=== PATIENT | male | born 1975 | race African-American/Black ===

== ENCOUNTER 2020-06-12 07:39 | Day surgery (SDC) | payer OTHER ==
[2020-06-12] MEDS ORDERED: LIDOCAINE 1% 10 ML VIAL INJ ONE (07:40)
[2020-06-12] MEDS ORDERED: PROPOFOL 200 MG/20 ML VIAL IV ONE (07:40)
[2020-06-12] MEDS ORDERED: SODIUM CHLORIDE 0.9% (FLUSH) 10 ML SYG ONE (08:03)
[2020-06-12] MEDS ORDERED: LACTATED RINGERS 1,000 ML ONE (08:03)
[2020-06-12] MEDS ORDERED: LACTATED RINGERS 1,000 ML IVS ONE (08:18)
--- NOTE | 2020-06-12 09:44 | OP ---
DATE OF PROCEDURE: 06/12/20 PREOPERATIVE DIAGNOSIS: 1. History of colonic polyps. POSTOPERATIVE DIAGNOSIS: 1. Single colonic polyp. 2. Mucosal inflammation about the rectum. PROCEDURE: 1. Colonoscopy. SURGEON: Enrico Lozoya MD ANESTHESIA: General. FINDINGS: As described, the polyp was at 20 cm, small, probably 3 mm. PLAN: Followup pathology. INDICATION: History of rectal bleeding. Known history of colonic polyps. PROCEDURE: General anesthesia was induced in the lateral position. Digital rectal exam was normal. The colonoscope was inserted. We saw some inflammation at the rectum, distal. No bleeding, no ulcers, just some red areas with white little star appearing things. The scope was then advanced all the way to the cecum as identified by the ileocecal valve and appendiceal orifice. There was a good prep and good visualization on withdrawal. The mucosal surfaces were normal and only a single polyp was seen at about 20 cm. This was a small, tongue-like polyp. It was excised completely. On retroflexion, the inflammation in the rectum was seen again. Two biopsies were taken as representation. He did have internal hemorrhoids with no stigmata of recent bleed. The colon was aspirated. He tolerated the procedure and was taken to Recovery to be discharged. #[id number] MTDD
[2020-06-12 09:57] VITALS: BP 145/91; TEMP 97; O2SAT 100
== END 2020-06-12 09:40 ==
LOC: AMB 07:39
PROVIDERS: ATTEND Surgery
DX: Z12.11 Encounter for screening for malignant neoplasm of colon (principal); K63.5 Polyp of colon; K62.89 Other specified diseases of anus and rectum; K52.9 Noninfective gastroenteritis and colitis, unspecified; K64.8 Other hemorrhoids; I10 Essential (primary) hypertension; Z86.010 Personal history of colon polyps; Z87.891 Personal history of nicotine dependence; Z79.899 Other long term (current) drug therapy
CPT/HCPCS: 00812; 45380; A4216; J3490; J7120